=== PATIENT | male | born 1965 | race Caucasian/White ===

== ENCOUNTER 2017-04-29 11:22 | Emergency (ER) | payer OTHER | END 2017-04-29 14:17 | disposition home or self-care (01) | LOC: ER 11:22 | DX: J06.9 Acute upper respiratory infection, unspecified (principal); J02.9 Acute pharyngitis, unspecified; H10.9 Unspecified conjunctivitis; H73.92 Unspecified disorder of tympanic membrane, left ear; I51.9 Heart disease, unspecified; Z95.5 Presence of coronary angioplasty implant and graft; F17.210 Nicotine dependence, cigarettes, uncomplicated; Z79.82 Long term (current) use of aspirin; Z79.899 Other long term (current) drug therapy; Z79.1 Long term (current) use of non-steroidal anti-inflammatories (NSAID) | CPT/HCPCS: 71020; 96372; 99283-25 ==